=== PATIENT | female | born 1950 | race Caucasian/White ===

== ENCOUNTER → 2017-03-23 | Outpatient (CLI) | payer OTHER ==
[~2017-03-23] MED LIST: ASPIRIN EC81 M1 PO; PROTONIX PO; VITAL-D RX TABL1 TAB PO
--- NOTE | ~2017-03-23 | MY29 ---
[facility] A Service of [facility] & [facility] RADIOLOGY TEXT RESULTS PATIENT: JOSÉ JASON LOCATION: [facility] : 54 UNIT #: [id number] AGE: [address]: Amanda Christianson MD SEX: F ORDER DR: [id number] [facility]. [place], [place] [address] [id number] MR#: [id number] Acc #: [id number] NAME: JOÉS JASON : 1950 SEX: F STUDY DATE/TIME: 03/23/2017 16:38 UNIT: [facility] ROOM: STUDY DESCRIPTION: MY VELIA SCREENING W/ CAD BILAT Attending Physician: Amanda Christianson M.D. Referring Physician: Amanda Christianson M.D. Ordering Physician: Amanda Christianson M.D. Primary Care Physician: Kiran Jara MEDICAL IMAGING REPORT This report is preliminary unless electronic signature is present EXAM Bilateral Digital Screening Mammogram with CAD INDICATION Breast cancer screening. 66-year-old asymptomatic female who reports an aunt with breast cancer. COMPARISON March 10, 2016; January 19, 2015; January 16, 2014; January 14, 2013; December 31, 2011; January 18, 2010, January 17, 2009; January 17, 2008; January 11, 2007 and December 29, 2005 FINDINGS There are scattered fibroglandular tissues. No suspicious findings are present. IMPRESSION No mammographic evidence of malignancy. Annual screening mammography and clinical breast exam are recommended. A result letter will be sent to the patient. Patients over the age of 40 are entered into a reminder system with target due date for the next mammogram. BIRADS: 1 Negative Dictated by... Neil Tolliver M.D. THIS IS AN ELECTRONICALLY VERIFIED REPORT [facility] A Service of [facility] & [facility] RADIOLOGY TEXT RESULTS PATIENT: JOSÉ JASON LOCATION: [facility] : 54 UNIT #: [id number] AGE: [address]: Amanda Christianson MD SEX: F ORDER DR: Neil Tolliver M.D. at 03/26/2017 12:45 PM URSULA/vianca TD: 03/24/2017 03:01 JOB #: [id number] MEDICAL IMAGING REPORT Page 1 of 1 COPY
== END | disposition home or self-care (01) ==
LOC: CWCC 16:01
DX: Z12.31 Encounter for screening mammogram for malignant neoplasm of breast (principal); Z80.3 Family history of malignant neoplasm of breast
CPT/HCPCS: G0202